=== PATIENT | male | born 1960 ===

== ENCOUNTER → 2024-06-20 10:52 | Outpatient (BNV) | payer OTHER, SELFPAY | PROVIDERS: PCP Internal Medicine; Referring Provider Internal Medicine; Visit Provider Internal Medicine Medical Oncology | DX: D69.6 Thrombocytopenia, unspecified (principal) | CPT/HCPCS: 99204 ==

== ENCOUNTER 2024-08-01 12:46 | Outpatient (REF) | payer OTHER, SELFPAY ==
--- NOTE | ~2024-08-01 | CT_ITS ---
EXAMINATION: CT CERVICAL SPINE WITHOUT CONTRAST CLINICAL INFORMATION: Cervical spine fracture. Cervical disc disease. COMPARISON: None available. TECHNIQUE: Contiguous axial images through the cervical spine from the craniocervical junction to the thoracic inlet using 2 mm collimation with bone and soft tissue algorithm. Sagittal and coronal reformatted images acquired. This CT examination was performed using dose optimization techniques as appropriate, variously including the following: *Automated exposure control *Adjustment of mA and/or kV according to patient size (this includes techniques or standardized protocols for targeted exams where dose is matched to indication/reason for exam; i.e. extremities or head) *Use of iterative reconstruction technique DLP: 454 mGy-cm FINDINGS: Submitted for interpretation on September 05, 2024. Craniocervical junction is intact. C1 is intact. C2 is intact. Status post bilateral laminectomies, C3-4 and C4-5 with likely bone grafting posteriorly. Transpedicle screws, bilaterally at C3 and C4. Status post anterior intervertebral body disc spacer placement at C5-6 resulting in incomplete ankylosis. No acute cortical disruption. No gross malalignment. Endplate sclerosis and decreased intervertebral disc height with marginal osteophyte formation at C6-7. No prevertebral fluid collection or gross hematoma. Calcified plaques in the carotid arteries, bilaterally. Tympanic cavities and included mastoid air cells are well pneumatized and aerated. CT/CT cervical spine wo IV con IMPRESSION: No acute fracture or listhesis. Status post bilateral laminectomies C3-4 and C4-5. Status post anterior intervertebral disc spacer placement C5-6. Spondylosis, C6-7. Fleischner guidelines were followed. Electronically signed by: Fracisco Washington MD 09/05/2024 02:14 PM GUMARO APARICIO
== END 2024-08-01 12:47 | disposition home or self-care (01) ==
LOC: HO.CT 12:46
PROVIDERS: Visit Provider Psychiatry & Neurology Neurology
DX: S12.9XXA Fracture of neck, unspecified, initial encounter (principal); M50.90 Cervical disc disorder, unspecified, unspecified cervical region
CPT/HCPCS: 72125

== ENCOUNTER → 2024-08-01 12:49 | Outpatient (BNV) | payer OTHER, SELFPAY | PROVIDERS: Visit Provider Radiology Diagnostic Radiology | DX: S12.9XXA Fracture of neck, unspecified, initial encounter (principal) | CPT/HCPCS: 72125 ==